=== PATIENT | male | born 1985 | race Hispanic/Latino ===

== ENCOUNTER 2019-11-18 10:48 | Emergency (ER) | payer OTHER ==
[~2019-11-18] VITALS: Ht 167.6 cm; Wt 91.7 kg
[2019-11-18] MEDS ORDERED: IBUPROFEN 600 MG TAB PO STA (11:28)
[2019-11-18] MEDS ORDERED: IBUPROFEN 600 MG TAB ONE (11:46)
--- NOTE | 2019-11-18 12:09 | Diagnostic Imaging Report ---
Exam: Right hand 3 views History: Pain, fall Comparison: None. Findings: No fracture or malalignment. Joint spaces preserved. No abnormal soft tissue calcification or soft tissue defect. Impression: No acute osseous abnormality Signed by: Dr. Danny Dinero M.D. on 11/18/2019 12:06 PM
--- NOTE | 2019-11-18 12:22 | Diagnostic Imaging Report ---
Exam: Forearm 2 views History: Pain Comparison: None. Findings: No fracture or malalignment. Joint spaces preserved. No abnormal soft tissue calcification or soft tissue defect. Impression: No acute osseous abnormality Signed by: Dr. Danny Dinero M.D. on 11/18/2019 12:19 PM
[2019-11-18 12:47] VITALS: BP 119/78
== END 2019-11-18 12:46 | disposition home or self-care (01) ==
LOC: FSED 10:48
DX: G89.11 Acute pain due to trauma (principal); M54.6 Pain in thoracic spine; S50.11XA Contusion of right forearm, initial encounter; S60.221A Contusion of right hand, initial encounter; W11.XXXA Fall on and from ladder, initial encounter; Y92.814 Boat as the place of occurrence of the external cause; Y99.0 Civilian activity done for income or pay; F17.200 Nicotine dependence, unspecified, uncomplicated
CPT/HCPCS: 81003; 99283